=== PATIENT | female | born 1965 | race Caucasian/White ===

== ENCOUNTER 2023-07-27 21:23 | Emergency (ER) | payer BC, SELFPAY ==
[2023-07-27 21:37] VITALS: BP 155/89; PULSE 86; RESP 18; TEMP 36.2; O2SAT 98; BMI 20.3
--- NOTE | 2023-07-27 22:57 | ED.GENADULT ---
HPI - General Adult General Chief complaint: General Medical Stated complaint: Rabis Bat Exposure Vaccine treatment Time Seen by Provider: 07/27/23 22:40 Source: patient and RN notes reviewed Mode of arrival: ambulatory Limitations: no limitations History of Present Illness HPI narrative: 58-year-old female presents for evaluation of ?rabies vaccine. ? The patient's cat brought a bat into the house Monday morning The patient's captured the bat and brought for rabies testing With patient found out today that the bat tested positive for rabies As far as the patient knows, she was not in direct contact with the bat She has no signs or symptoms or complaints It was recommended to her that she received the rabies vaccine any ways Related Data Allergies Allergy/AdvReac Type Severity Reaction Status Date / Time No Known Allergies Allergy Verified 07/27/23 21:36 Review of Systems Constitutional: Constitutional: Denies chills and Denies fever(s) Respiratory: Respiratory: Denies cough PMFSH Social History Social History Advance Directives: No Physical Exam ED Vital Signs: Vital Signs - 24 hr 07/27/23 21:37 Temperature 97.1 F Pulse Rate 86 Respiratory Rate 18 Blood Pressure 155/89 H Pulse Oximetry 98 Oxygen Delivery Method Room Air BMI result Body Mass Index 20.3 Const General: healthy appearing, comfortable, no acute distress, alert and awake Nutritional Appearance: well nourished Orientation/consciousness: patient oriented x3 HENMT Head: Yes normocephalic and Yes atraumatic Eyes Eyelids: Yes eyelids normal Conjunctivae: conjunctivae normal Sclerae: sclerae normal Corneas: corneas normal Pupils: Equal, round and reactive pupils present EOM: EOMs intact bilaterally Neck Neck: Yes full ROM Resp Effort & Inspection: normal respiratory effort, able to speak in complete sentences and not labored Neuro General: patient oriented x3 Cranial nerves: Yes Equal, round and reactive pupils present and Yes Bilaterally intact EOM present Cognition (Neuro): normal cognition Extrem Other: Moving all extremities well without any obvious deformities Medical Decision Making Medical Decision Making MDM Narrative: The rabies immunoglobulin and vaccine as the bat did test positive for rabies. Differential Diagnosis Differential Diagnoses: The differential diagnosis associated with the presentation includes Rabies exposure Rabies vaccine Well visit Discharge Plan Discharge Clinical Impression: Exposure to rabies Patient Disposition: Home, Self-Care Instructions: Rabies Vaccine (By injection), Rabies (ED) Additional Instructions: Your treated with both the rabies vaccine and rabies immunoglobulin today. You need to return in 3 days, 7 days, and 14 days from today for the rabies vaccine only
[2023-07-27] MEDS: Rabies Vaccine, Human Diploid (Imovax) 1 ML VIAL IM (23:30)
[2023-07-27] MEDS: Rabies Immune Globulin/PF 900 UNIT/3 ML VIAL 1040 UNIT IM (23:30)
== END 2023-07-27 23:44 | disposition home or self-care (01) ==
PROVIDERS: Emergency Provider Internal Medicine; PCP Internal Medicine
DX: Z20.3 Contact with and (suspected) exposure to rabies (principal)
CPT/HCPCS: 90375; 90471; 90675; 96372; 99282; 99284

== ENCOUNTER 2023-07-30 10:00 | Outpatient (REF) | payer BC, SELFPAY | END 2023-07-30 10:01 | disposition home or self-care (01) | LOC: HO.MDS 10:00 | PROVIDERS: Visit Provider Physician Assistant | DX: Z20.3 Contact with and (suspected) exposure to rabies (principal) | CPT/HCPCS: 90471; 90675 ==

== ENCOUNTER 2023-08-03 06:59 | Outpatient (REF) | payer BC, SELFPAY | END 2023-08-03 07:00 | disposition home or self-care (01) | LOC: HO.MDS 06:59 | PROVIDERS: Visit Provider Physician Assistant | DX: Z20.3 Contact with and (suspected) exposure to rabies (principal) | CPT/HCPCS: 90471; 90675 ==

== ENCOUNTER 2023-08-10 06:52 | Outpatient (REF) | payer BC, SELFPAY | END 2023-08-10 06:53 | disposition home or self-care (01) | LOC: HO.MDS 06:52 | PROVIDERS: Visit Provider Physician Assistant | DX: Z20.3 Contact with and (suspected) exposure to rabies (principal) | CPT/HCPCS: 90471; 90675 ==